=== PATIENT | female | born 1995 | race Two or more races ===

== ENCOUNTER 2018-11-26 11:09 | Emergency (ER) | payer SELFPAY ==
[~2018-11-26] VITALS: Ht 157.5 cm; Wt 55.0 kg
[2018-11-26 12:05] LABS: CLARITY URINE CLOUDY (CLEAR); COLOR URINE YELLOW (YELLOW); KETONES URINE TRACE (NEGATIVE); LEUKOCYTE ESTERASE URINE TRACE (NEGATIVE); NITRITE URINE NEGATIVE (NEGATIVE); OCCULT BLOOD URINE NEGATIVE (NEGATIVE); PH URINE 5.5 (4.5-8.0); PROTEIN URINE NEGATIVE (NEGATIVE); SPECIFIC GRAVITY URINE 1.023 (1.005-1.030); UROBILINOGEN URINE 0.2 E.U./dL (0.2-1.0)
[2018-11-26 13:21] VITALS: BP 99/62
== END 2018-11-26 16:20 | disposition left against medical advice (07) ==
LOC: ER 11:09
DX: R19.7 Diarrhea, unspecified (principal); Z53.21 Procedure and treatment not carried out due to patient leaving prior to being seen by health care provider
CPT/HCPCS: 81025